=== PATIENT | male | born 1990 | race African-American/Black ===

== ENCOUNTER 2018-07-08 10:53 | Emergency (ER) | payer OTHER | END 2018-07-08 11:50 | disposition home or self-care (01) | LOC: M ED 10:53 | DX: M25.561 Pain in right knee (principal); X50.1XXA Overexertion from prolonged static or awkward postures, initial encounter; Y92.830 Public park as the place of occurrence of the external cause | CPT/HCPCS: 73564 ==

== ENCOUNTER 2022-12-04 13:57 | Emergency (ER) | payer OTHER ==
[~2022-12-04] VITALS: Ht 177.8 cm; Wt 95.0 kg
[2022-12-04] MEDS ORDERED: IBUPROFEN 800 MG TAB PO ONE (23:30)
[2022-12-05 00:16] VITALS: BP 135/73
== END 2022-12-05 00:17 | disposition home or self-care (01) ==
LOC: EDBD 13:57 → M ED 13:57
DX: S86.012A Strain of left Achilles tendon, initial encounter (principal); W01.0XXA Fall on same level from slipping, tripping and stumbling without subsequent striking against object, initial encounter; Y93.67 Activity, basketball; Y92.830 Public park as the place of occurrence of the external cause; F17.290 Nicotine dependence, other tobacco product, uncomplicated; Z91.013 Allergy to seafood